=== PATIENT | male | born 1980 | race African-American/Black ===

== ENCOUNTER 2021-06-06 04:57 | Emergency (ER) | payer OTHER ==
[2021-06-06 05:35] VITALS: BP 108/68; PULSE 78; TEMP 98.1; BMI 19.8
== END 2021-06-06 06:42 | disposition left against medical advice (07) ==
LOC: JER 04:57
DX: S01.21XA Laceration without foreign body of nose, initial encounter (principal); X99.8XXA Assault by other sharp object, initial encounter
CPT/HCPCS: 99281-25

== ENCOUNTER 2025-01-23 03:28 | Emergency (ER) | payer OTHER ==
[2025-01-23 03:44] VITALS: TEMP 98.2; BMI 23.6
[2025-01-23] MEDS ORDERED: IBUPROFEN 400 MG TABLET (FP) PO ONE (04:49)
[2025-01-23] MEDS ORDERED: ACETAMINOPHEN 325 MG TABLET (FP) ONE (04:49)
[2025-01-23] MEDS: IBUPROFEN 400 MG TABLET (FP) PO ONE (04:59)
[2025-01-23] MEDS: ACETAMINOPHEN 500 MG TABLET (FP) PO ONE (05:00)
[2025-01-23] MEDS: LIDOCAINE 5% TOPICAL PATCH TP ONE (05:07)
[2025-01-23] MEDS ORDERED: LIDOCAINE 5% TOPICAL PATCH ONE (05:07)
[2025-01-23 06:24] VITALS: BP 112/74; PULSE 79; RESP 17
[2025-01-23] MEDS ORDERED: LIDOCAINE PATCH REMOVAL MC SCH (22:00)
== END 2025-01-23 06:26 | disposition home or self-care (01) ==
LOC: JER 03:28
DX: M54.2 Cervicalgia (principal); V09.1XXA Pedestrian injured in unspecified nontraffic accident, initial encounter; Y92.410 Unspecified street and highway as the place of occurrence of the external cause
CPT/HCPCS: 70450-TC; 72125-TC; 72131-TC; 99284-25